=== PATIENT | male | born 2000 | race Hispanic/Latino ===

== ENCOUNTER 2025-01-21 23:08 | Emergency (ER) | payer SELFPAY ==
--- NOTE | 2025-01-21 23:14 | NUR ---
PT SIGNED IN " CHECK UP STI" PT CALLED AT [phone] NOT IN LOBBY NO ANSWER
== END 2025-01-21 23:15 | disposition left against medical advice (07) ==
LOC: EDH 23:08
DX: Z11.3 Encounter for screening for infections with a predominantly sexual mode of transmission (principal); Z53.21 Procedure and treatment not carried out due to patient leaving prior to being seen by health care provider